=== PATIENT | female | born 1995 ===

== ENCOUNTER 2022-02-01 11:14 | Emergency (ER) | payer BC, OTHER ==
[2022-02-01] MEDS ORDERED: KETOROLAC 30 MG/1 ML INJ IM ONE (14:53)
[2022-02-01] MEDS ORDERED: oxyCODONE /ACETAMINOPHEN 5-325MG TAB PO ONE (14:53)
--- NOTE | 2022-02-01 15:47 | XRay Report ---
LUMBAR SPINE 3 VIEWS INDICATION: back pain COMPARISON: None. FINDINGS: No acute, displaced fracture is seen. Alignment is within normal limits. Disc space height is maintained. No significant degenerative changes. IMPRESSION: 1. No acute findings. Signer Name: Adam Cummings MD Signed: 02/01/2022 3:42 PM Workstation Name: [id number]
--- NOTE | 2022-02-01 16:18 | Emergency Department Report ---
ED Back Pain/Injury HPI - General Chief Complaint: Back Pain/Injury Stated Complaint: BACK PAIN Time Seen by Provider: 02/01/22 13:59 Source: patient Limitations: No Limitations - History of Present Illness Initial Comments: 26-year-old female with past medical history of type 2 diabetes. Reports to the ER today with complaints of left-sided back pain that radiates down the left leg for 1 week.Patient denies any injury to her back, denies dysuria, denies any blood in urine. Patient denies any saddle anesthesia, no numbness or tingling in the pelvic area. Patient denies any ambulatory concerns. No other acute symptoms reported at this time. - Related Data Home Medications Medication Instructions Recorded Confirmed Last Taken Insulin Aspart (Nf) [NovoLOG See Protocol SQ QACHS 06/27/15 06/27/15 06/27/15 Flexpen] Insulin Glargine [Lantus] 30 unit SUB-Q QHS 06/27/15 06/27/15 06/26/15 Previous Rx's Medication Instructions Recorded Last Taken Type Fluconazole (Nf) [Diflucan TAB] 150 mg PO QDAY #2 tablet 06/28/15 Unknown Rx Ketoconazole 2% [Nizoral] 1 applicatio TP TID #30 gm 06/28/15 Unknown Rx Phenazopyridine [Pyridium] 200 mg PO TID #6 tab 08/16/16 Unknown Rx Sulfamethoxazole/Trimethoprim 1 each PO BID #14 tablet 08/16/16 Unknown Rx [Bactrim DS TAB] traMADoL [Ultram] 50 mg PO Q6HR PRN #14 tablet 08/16/16 Unknown Rx Acetaminophen/Codeine [Tylenol 1 tab PO Q6H PRN 2 Days #8 tab 02/01/22 Unknown Rx /Codeine # 3 tab] Ibuprofen [Motrin] 600 mg PO Q8H PRN 7 Days #21 tablet 02/01/22 Unknown Rx methOCARBAMOL [Robaxin TAB] 500 mg PO BID 7 Days #14 tab 02/01/22 Unknown Rx Allergies Allergy/AdvReac Type Severity Reaction Status Date / Time amoxicillin trihydrate AdvReac Hives Verified 06/27/15 19:48 [From Augmentin] potassium clavulanate AdvReac Hives Verified 06/27/15 19:48 [From Augmentin] ED Review of Systems ROS: Stated complaint: BACK PAIN Other details as noted in HPI Comment: All other systems reviewed and negative Musculoskeletal: back pain ED Past Medical Hx - Past Medical History Previous Medical History?: Yes Hx Diabetes: Yes (IDDM) - Surgical History Additional Surgical History: Tonsillectomy - Social History Smoking Status: Never Smoker Substance Use Type: Alcohol (occasional) - Medications Home Medications: Home Medications Medication Instructions Recorded Confirmed Last Taken Type Insulin Aspart (Nf) [NovoLOG See Protocol SQ QACHS 06/27/15 06/27/15 06/27/15 History Flexpen] Insulin Glargine [Lantus] 30 unit SUB-Q QHS 06/27/15 06/27/15 06/26/15 History Fluconazole (Nf) [Diflucan TAB] 150 mg PO QDAY #2 tablet 06/28/15 Unknown Rx Ketoconazole 2% [Nizoral] 1 applicatio TP TID #30 gm 06/28/15 Unknown Rx Phenazopyridine [Pyridium] 200 mg PO TID #6 tab 08/16/16 Unknown Rx Sulfamethoxazole/Trimethoprim 1 each PO BID #14 tablet 08/16/16 Unknown Rx [Bactrim DS TAB] traMADoL [Ultram] 50 mg PO Q6HR PRN #14 tablet 08/16/16 Unknown Rx Acetaminophen/Codeine [Tylenol 1 tab PO Q6H PRN 2 Days #8 tab 02/01/22 Unknown Rx /Codeine # 3 tab] Ibuprofen [Motrin] 600 mg PO Q8H PRN 7 Days #21 tablet 02/01/22 Unknown Rx methOCARBAMOL [Robaxin TAB] 500 mg PO BID 7 Days #14 tab 02/01/22 Unknown Rx ED Physical Exam - General Limitations: No Limitations General appearance: alert, in no apparent distress - Head Head exam: Present: atraumatic, normocephalic - Eye Eye exam: Present: normal appearance - ENT ENT exam: Present: mucous membranes moist - Neck Neck exam: Present: normal inspection - Respiratory Respiratory exam: Present: normal lung sounds bilaterally. Absent: respiratory distress - Cardiovascular Cardiovascular Exam: Present: regular rate, normal rhythm. Absent: systolic murmur, diastolic murmur, rubs, gallop - GI/Abdominal GI/Abdominal exam: Present: soft, normal bowel sounds - Extremities Exam Extremities exam: Present: normal inspection - Back Exam Back exam: Present: normal inspection, tenderness, other (Left-sided low back tenderness noted. No spinal tenderness or step-offs noted.) - Expanded Back Exam Expanded Back exam: Absent: saddle anesthesia Back exam: Negative Straight Leg Raising: Right, Left - Neurological Exam Neurological exam: Present: alert, oriented X3 - Psychiatric Psychiatric exam: Present: normal affect, normal mood - Skin Skin exam: Present: warm, dry, intact, normal color. Absent: rash ED Course Vital Signs 02/01/22 11:39 Temperature 97.6 F Pulse Rate 99 H Respiratory 18 Rate Blood Pressure 127/89 [Right] O2 Sat by Pulse 100 Oximetry ED Medical Decision Making - Radiology Data [facility] [address] [place] [address] XRay Report Signed Patient: JILL GUERRERO MR#: [id number] : 1995 Acct:[id number] Age/Sex: 26 / F ADM Date: 02/01/22 Loc: ED Attending Dr: Ordering Physician: ELBERT PINEDO NP Date of Service: 02/01/22 Procedure(s): XR spine lumbosacral 2-3V Accession Number(s): [id number] cc: ELBERT PINEDO NP Fluoro Time In Minutes: LUMBAR SPINE 3 VIEWS INDICATION: back pain COMPARISON: None. FINDINGS: No acute, displaced fracture is seen. Alignment is within normal limits. Disc space height is maintained. No significant degenerative changes. IMPRESSION: 1. No acute findings. Signer Name: Adam Cummings MD Signed: 02/01/2022 3:42 PM Workstation Name: [id number] Transcribed By: HANNA Dictated By: Adam Cummings MD Electronically Authenticated By: Adam Cummings MD Signed Date/Time: 02/01/22 154 DD/ 41 TD/TT: - Medical Decision Making 26-year-old female past medical history diabetes, reports to the ER with left- sided lower back pain that radiates down her left thigh. Patient reports the pain has been present for about a week now. Patient does report lifting something heavy at work about 1 week ago. Patient denies any urinary symptoms, no loss of bowel bladder. No saddle anesthesia reported no pelvic numbness. On physical exam patient does have tenderness to the left lower back area in the musculoskeletal region. No spinal process tenderness noted. Patient had a negative straight leg exam. Lumbar x-ray shows no acute process noted. Patient reports a decrease in pain after receiving oral medications here in the ER. Patient informed her x-ray results. Patient informed to follow her primary care provider. Patient agrees with plan of care and verbalized understanding. Patient discharged home with oral medications for pain control and muscle spasm. Patient is stable for discharge no further work-up is needed at this time. Vital Signs 02/01/22 02/01/22 11:39 18:53 Temperature 97.6 F 97.2 F L Pulse Rate 99 H 77 Respiratory 18 16 Rate Blood Pressure 127/89 130/84 [Right] O2 Sat by Pulse 100 100 Oximetry Critical care attestation.: If time is entered above; I have spent that time in minutes in the direct care of this critically ill patient, excluding procedure time. ED Disposition Clinical Impression: Left-sided low back pain without sciatica Qualifiers: Chronicity: acute Qualified Code(s): M54.50 - Low back pain, unspecified Disposition: 01 HOME / SELF CARE / HOMELESS Is pt being admited?: No Condition: Stable Instructions: Back Exercises, [id number], Acute Back Pain, Adult Prescriptions: Ibuprofen [Motrin] 600 mg PO Q8H PRN 7 Days #21 tablet PRN Reason: Pain methOCARBAMOL [Robaxin TAB] 500 mg PO BID 7 Days #14 tab Acetaminophen/Codeine [Tylenol /Codeine # 3 tab] 1 tab PO Q6H PRN 2 Days #8 tab PRN Reason: pain Referrals: YARA CAMPBELL MD [Primary Care Provider] - 3-5 Days
[2022-02-01 18:54] VITALS: BP 130/84
== END 2022-02-01 18:56 | disposition home or self-care (01) ==
LOC: ED 11:14
DX: M54.50 Low back pain, unspecified (principal); F10.20 Alcohol dependence, uncomplicated; E11.9 Type 2 diabetes mellitus without complications
CPT/HCPCS: 72100; 96372; 99283; J1885